=== PATIENT | female | born 1950 | race Two or more races ===

== ENCOUNTER 2024-08-08 13:49 | Outpatient (RCR) | payer OTHER, SELFPAY | END 2024-08-22 23:59 | disposition home or self-care (01) | LOC: SCTC 13:49 | PROVIDERS: PCP Family Medicine; Referring Provider Family Medicine; Visit Provider Nurse Practitioner Family | DX: C50.211 Malignant neoplasm of upper-inner quadrant of right female breast (principal); Z17.0 Estrogen receptor positive status [ER+]; Z17.21 Progesterone receptor positive status; Z17.32 Human epidermal growth factor receptor 2 negative status; Z90.11 Acquired absence of right breast and nipple; M85.89 Other specified disorders of bone density and structure, multiple sites; Z79.810 Long term (current) use of selective estrogen receptor modulators (SERMs); I10 Essential (primary) hypertension | CPT/HCPCS: 99212; G0463 ==

== ENCOUNTER → 2024-08-08 | Outpatient (CLI) | payer OTHER, SELFPAY ==
[2024-08-08 09:14] LABS: Basophils # (Auto) 0.1 Thou/mm3 (0.0-0.2); Basophils % (Auto) 1 % (0-2.5); Eosinophils # (Auto) 0.2 Thou/mm3 (0.0-0.5); Eosinophils % (Auto) 3 % (0-10); Hematocrit 36.9 % (36.0-46.0); Hemoglobin 12.8 g/dL (12.0-16.0); Immature Granulocytes % (Auto) 0 % (0-0); Immature Granulocytes Auto 0.02 Thou/mm3 (0.00-0.00); Lymphocytes # (Auto) 1.7 Thou/mm3 (1.0-4.8); Lymphocytes % (Auto) 28 % (10-50); Mean Corpuscular HGB Conc 34.7 g/dl (31.0-37.0); Mean Corpuscular Hemoglobin 33.5 pg (25.0-35.0); Mean Corpuscular Volume 97 fL (80-100); Monocytes # (Auto) 0.4 Thou/mm3 (0.0-0.8); Monocytes % (Auto) 6 % (0-12); Neutrophils # (Auto) 3.8 Thou/mm3 (1.8-7.7); Neutrophils % (Auto) 62 % (37-80); Nucleated Red Blood Cell % 0 /100 WBC (0); Platelet Count 292 Thou/mm3 (140-440); RDW Standard Deviation 45.4 fL (36.4-46.3); Red Blood Count 3.82 Miln/mm3 (4.00-5.20); White Blood Count 6.2 Thou/mm3 (3.6-11.0)
[2024-08-08 09:30] LABS: Alanine Aminotransferase 17 U/L (10-49); Albumin, Serum 4.3 gm/dL (3.4-4.8); Albumin/Globulin Ratio 1.8 (1.2-2.2); Alkaline Phosphatase 49 U/L (46-116); Anion Gap 7 (7-16); Aspartate Amino Transferase 16 U/L (0-34); BUN/Creatinine Ratio 18 Ratio (12-20); Bilirubin,Total 0.5 mg/dL (0.3-1.2); Blood Urea Nitrogen 11 mg/dL (9-23); Calcium 9.3 mg/dL (8.3-10.6); Calcium (Corrected) 9.3 mg/dL (8.5-10.1); Carbon Dioxide 28.1 mMol/L (20.0-31.0); Chloride 105 mMol/L (98-107); Creatinine (Component) 0.6 mg/dL (0.6-1.3); Globulin 2.4 gm/dL (2.3-3.5); Glucose 120 mg/dL (74-106); Osmolality,Calculated 279 (275-295); Potassium 4.7 mMol/L (3.4-5.1); Sodium 140 mMol/L (136-145); Total Protein 6.7 gm/dL (5.7-8.2); eGFR > 60 See Note
== END | disposition home or self-care (01) ==
PROVIDERS: PCP Family Medicine; Referring Provider Internal Medicine Hematology & Oncology; Visit Provider Internal Medicine Hematology & Oncology
DX: C50.411 Malignant neoplasm of upper-outer quadrant of right female breast (principal)
CPT/HCPCS: 36415; 80053; 85025

== ENCOUNTER 2024-09-11 08:55 | Day surgery (SDC) | payer OTHER, SELFPAY ==
[2024-09-08 15:25] VITALS: BMI 29.9
[2024-09-11] VITALS (10 sets, daily range): BP systolic 69–127; BP diastolic 42–83; PULSE 78–112; RESP 11–20; TEMP 36.2–36.7; O2SAT 96–99; BMI 28.8
[2024-09-11] MEDS: MIDAZOLAM INJ 1 MG/ML VIAL 2 ML (ASD USE ONLY) 2 MG IV (03:00)
[2024-09-11] MEDS: ONDANSETRON INJ 2 MG/ML INJ 2 ML 4 MG IV (11:18)
[2024-09-11] MEDS: DiphenhydrAMINE INJ 50 MG/ML VIAL 25 MG IV (11:18)
[2024-09-11] MEDS: SODIUM CHLORIDE 0.9% 500 ML 500 ML 20 ML IV (11:25)
--- NOTE | 2024-09-11 11:25 | SUR.OPER ---
1125 INFORMED OF LOW BLOOD PRESSURE. ORDER RECEIVED FOR A 500ML NS BOLUS.
[2024-09-11] MEDS: fentaNYL CIT INJ 50 mCg/ML AMP 2ML (ASD USE ONLY) IV (11:27)
[2024-09-11] MEDS: RINGERS LACTATED 1000 ML 1,000 ML 125 ML IV (11:52)
== END 2024-09-11 12:34 | disposition home or self-care (01) ==
PROVIDERS: PCP Family Medicine; Referring Provider Specialist; Visit Provider Specialist
PROC: 0DBE8ZX Excision of Large Intestine, Via Natural or Artificial Opening Endoscopic, Diagnostic (ICD-10-PCS; CPT 45380; principal; 2024-09-11 10:15)
DX: K52.9 Noninfective gastroenteritis and colitis, unspecified (principal); K63.89 Other specified diseases of intestine; K62.89 Other specified diseases of anus and rectum; K64.9 Unspecified hemorrhoids; K57.30 Diverticulosis of large intestine without perforation or abscess without bleeding; I10 Essential (primary) hypertension
CPT/HCPCS: 45380; A4649; J1200; J2250; J2405; J3010; J7040; J7120

== ENCOUNTER → 2024-10-10 | Outpatient (CLI) | payer OTHER, SELFPAY ==
[2024-10-10 10:51] LABS: Glucose Estimated Average 111 mg/dL (80-131); Hemoglobin A1C 5.5 % Hgb (4.8-6.0)
[2024-10-10 11:12] LABS: Alanine Aminotransferase 17 U/L (10-49); Albumin, Serum 4.2 gm/dL (3.4-4.8); Albumin/Globulin Ratio 1.7 (1.2-2.2); Alkaline Phosphatase 48 U/L (46-116); Anion Gap 11 (7-16); Aspartate Amino Transferase 22 U/L (0-34); BUN/Creatinine Ratio 20 Ratio (12-20); Bilirubin,Total 0.5 mg/dL (0.3-1.2); Blood Urea Nitrogen 12 mg/dL (9-23); Calcium 9.9 mg/dL (8.3-10.6); Calcium (Corrected) 9.9 mg/dL (8.5-10.1); Carbon Dioxide 27.4 mMol/L (20.0-31.0); Cardiac Risk Estimate 3.3 RATIO (3.7-5.6); Chloride 104 mMol/L (98-107); Cholesterol 188 mg/dL (132-200); Creatinine (Component) 0.6 mg/dL (0.6-1.3); Globulin 2.5 gm/dL (2.3-3.5); Glucose 117 mg/dL (74-106); HDL Cholesterol 57 mg/dL (40-60); LDL Cholesterol,Calculated 80 mg/dL (0-130); Osmolality,Calculated 283 (275-295); Potassium 5.1 mMol/L (3.4-5.1); Sodium 142 mMol/L (136-145); Thyroid Stimulating Hormone 3.75 uIU/mL (0.55-4.78); Total Protein 6.7 gm/dL (5.7-8.2); Triglycerides 253 mg/dL (30-150); eGFR > 60 See Note
[2024-10-10 11:34] LABS: Collection Type, Urine Clean Catch
[2024-10-10 12:08] LABS: Creatinine MALB Rnd Ur 83 mg/dL (30-125); Microalbumin Creat Ratio 11 mg/gCrea (<30); Microalbumin, Random Urine 9 mg/L (0-300)
[2024-10-10 12:11] LABS: Bilirubin,Urine Negative (Negative); Blood,Urine Negative (Negative); Clarity,Urine Turbid (Clear/Hazy); Color,Urine Yellow (Lt Yel-Yel); Glucose, Urine Negative (Negative); Ketones,Urine Negative (Negative); Leukocyte Esterase,Urine Negative (Negative); Nitrite,Urine Negative (Negative); Protein,Urine Negative (Neg - Trace); RBC,Urine 8 /hpf (0-3); Specific Gravity,Urine 1.019 (1.001-1.035); Squamous Epithelial Cell,Urine 11 /hpf (0-5); Urobilinogen,Urine Negative mg/dL (0.0-1.0); WBC,Urine 6 /hpf (0-5)
== END | disposition home or self-care (01) ==
PROVIDERS: PCP Family Medicine; Referring Provider Family Medicine; Visit Provider Family Medicine
DX: Z00.00 Encounter for general adult medical examination without abnormal findings (principal); E11.40 Type 2 diabetes mellitus with diabetic neuropathy, unspecified; E78.2 Mixed hyperlipidemia; I10 Essential (primary) hypertension
CPT/HCPCS: 36415; 80053; 80061; 81001; 82043; 82570; 83036; 84443

== ENCOUNTER → 2024-10-18 | Outpatient (CLI) | payer OTHER, SELFPAY ==
--- NOTE | 2024-10-18 11:45 | XR_ITS ---
Examination: Screening digital mammography, bilateral Computer aided detection 3-D breast Tomosynthesis, bilateral Date and time of exam: 10/18/2024, 11:42 AM Comparisons: June 11 2124 Indications: Screening Technique: Nonmagnified MLO, CC views of the breasts to been obtained, reconstructed from 3-D Tomosynthesis images. R2 computer aided detection program utilized for evaluation of suspicious masses and/or abnormal calcifications. 3-D Tomosynthesis images obtained. Technologist: Findings: There are scattered areas of fibroglandular density. Postoperative changes in the right breast. No evidence of residual or recurrent masses. Otherwise, no evidence of abnormal masses or suspicious calcifications. Impression: BI-RADS category 2: Benign findings Recommend 1 year follow-up mammogram
--- NOTE | 2024-10-18 12:00 | XR_ITS ---
Examination: Bone densitometry Date and time of exam:October 18, 2024 1240 hrs. Indications: Postmenopausal, right breast cancer diagnosis, personal history osteopenia Technique: Lumbar spine and hip total bone mineralization values of an calculated. Peak reference and age match control results have been displayed. Findings: Lumbar spine total bone mineralization is0.845 gm/cm2. This is 1.8 standard deviations below peak reference. This is 0.6 standard deviations above age-matched controls. Hip total bone mineralization is 0.885 gm/cm2 This is 0.6 standard deviations below peak reference. This is 1.3 standard deviations above age-matched controls Impression: There is osteopenia based on lumbar spine measurements. There is osteopenia based on hip measurements Lumbar mineralization is increase 0.4% compared with October 07, 2022 Hip mineralization is decreased 2.7% compared with October 07, 2022
== END | disposition home or self-care (01) ==
LOC: CDIM 11:30
PROVIDERS: Referring Provider Nurse Practitioner Family; Visit Provider Nurse Practitioner Family
DX: Z12.31 Encounter for screening mammogram for malignant neoplasm of breast (principal); R92.323 Mammographic fibroglandular density, bilateral breasts; M85.89 Other specified disorders of bone density and structure, multiple sites; C50.411 Malignant neoplasm of upper-outer quadrant of right female breast
CPT/HCPCS: 77063; 77067; 77080

== ENCOUNTER → 2024-10-20 | Outpatient (CLI) | payer OTHER, SELFPAY ==
[2024-10-20 10:10] LABS: Basophils % (Auto) 1 % (0-2.5); Eosinophils # (Auto) 0.1 Thou/mm3 (0.0-0.5); Eosinophils % (Auto) 2 % (0-10); Hematocrit 38.3 % (36.0-46.0); Immature Granulocytes % (Auto) 0 % (0-0); Immature Granulocytes Auto 0.02 Thou/mm3 (0.00-0.00); Lymphocytes # (Auto) 1.6 Thou/mm3 (1.0-4.8); Lymphocytes % (Auto) 22 % (10-50); Mean Corpuscular HGB Conc 33.9 g/dl (31.0-37.0); Mean Corpuscular Hemoglobin 32.7 pg (25.0-35.0); Mean Corpuscular Volume 96 fL (80-100); Monocytes # (Auto) 0.4 Thou/mm3 (0.0-0.8); Monocytes % (Auto) 6 % (0-12); Neutrophils # (Auto) 5.1 Thou/mm3 (1.8-7.7); Neutrophils % (Auto) 70 % (37-80); Nucleated Red Blood Cell % 0 /100 WBC (0); Platelet Count 317 Thou/mm3 (140-440); RDW Standard Deviation 43.8 fL (36.4-46.3); Red Blood Count 3.98 Miln/mm3 (4.00-5.20); White Blood Count 7.3 Thou/mm3 (3.6-11.0)
[2024-10-20 10:30] LABS: Alanine Aminotransferase 15 U/L (10-49); Albumin, Serum 4.2 gm/dL (3.4-4.8); Albumin/Globulin Ratio 1.7 (1.2-2.2); Alkaline Phosphatase 48 U/L (46-116); Anion Gap 8 (7-16); Aspartate Amino Transferase 19 U/L (0-34); BUN/Creatinine Ratio 20 Ratio (12-20); Bilirubin,Total 0.4 mg/dL (0.3-1.2); Blood Urea Nitrogen 10 mg/dL (9-23); Calcium 9.6 mg/dL (8.3-10.6); Calcium (Corrected) 9.6 mg/dL (8.5-10.1); Carbon Dioxide 27.8 mMol/L (20.0-31.0); Chloride 106 mMol/L (98-107); Creatinine (Component) 0.5 mg/dL (0.6-1.3); Globulin 2.5 gm/dL (2.3-3.5); Glucose 113 mg/dL (74-106); Osmolality,Calculated 283 (275-295); Potassium 5.2 mMol/L (3.4-5.1); Sodium 142 mMol/L (136-145); Total Protein 6.7 gm/dL (5.7-8.2); eGFR > 60 See Note
== END | disposition home or self-care (01) ==
LOC: SCTO 09:33
PROVIDERS: PCP Family Medicine; Referring Provider Internal Medicine Hematology & Oncology; Visit Provider Internal Medicine Hematology & Oncology
DX: C50.411 Malignant neoplasm of upper-outer quadrant of right female breast (principal)
CPT/HCPCS: 36415; 80053; 85025

== ENCOUNTER → 2024-11-09 | Outpatient (CLI) | payer OTHER, SELFPAY ==
--- NOTE | 2024-11-09 10:10 | XR_ITS ---
EXAMINATION: Ankle, left 3 views . Technique: Ankle AP, oblique, lateral 3 views Date and time of exam: November 09, 2024 10:19 AM INDICATIONS: Left ankle swelling beginning 3 months ago. FINDINGS: Bimalleolar soft tissue swelling Severe osteopenia No fracture IMPRESSION: No fracture
--- NOTE | 2024-11-09 10:12 | XR_ITS ---
Examination: Duplex scan of the lower extremity, unilateral left Date and time of exam: November 09, 2024 1051 hours INDICATIONS: Left lower leg swelling 3 years, diagnosis breast cancer Technique: Duplex scan of the extremity veins using B-mode/grayscale imaging and Doppler spectral analysis and color flow Attention is directed to internal echogenicity, compression and augmentation involving these veins, color flow assessment, spectral analysis Findings: Major deep venous structures in the extremity demonstrate normal course and caliber. There is no evidence of deep vein thrombosis. Normal color flow and spectral analysis Impression: Negative for DVT..
== END | disposition home or self-care (01) ==
PROVIDERS: PCP Family Medicine; Referring Provider Nurse Practitioner Family; Visit Provider Nurse Practitioner Family
DX: M25.472 Effusion, left ankle (principal); M79.89 Other specified soft tissue disorders; C50.411 Malignant neoplasm of upper-outer quadrant of right female breast
CPT/HCPCS: 73610; 93971

== ENCOUNTER 2024-11-14 09:28 | Outpatient (RCR) | payer OTHER, SELFPAY | END 2024-11-20 23:59 | disposition home or self-care (01) | LOC: SCTC 09:28 | PROVIDERS: PCP Family Medicine; Referring Provider Family Medicine; Visit Provider Nurse Practitioner Family | DX: C50.211 Malignant neoplasm of upper-inner quadrant of right female breast (principal); Z17.0 Estrogen receptor positive status [ER+]; Z17.21 Progesterone receptor positive status; Z17.32 Human epidermal growth factor receptor 2 negative status; Z90.11 Acquired absence of right breast and nipple; M85.89 Other specified disorders of bone density and structure, multiple sites; I10 Essential (primary) hypertension; M25.572 Pain in left ankle and joints of left foot; R60.0 Localized edema; Z79.810 Long term (current) use of selective estrogen receptor modulators (SERMs) | CPT/HCPCS: 99212; G0463 ==

== ENCOUNTER → 2024-11-28 | Outpatient (CLI) | payer OTHER, SELFPAY ==
[2024-11-28 12:32] LABS: Alanine Aminotransferase 16 U/L (10-49); Albumin, Serum 4.1 gm/dL (3.4-4.8); Albumin/Globulin Ratio 1.4 (1.2-2.2); Alkaline Phosphatase 53 U/L (46-116); Anion Gap 8 (7-16); Aspartate Amino Transferase 21 U/L (0-34); BUN/Creatinine Ratio 20 Ratio (12-20); Bilirubin,Total 0.5 mg/dL (0.3-1.2); Blood Urea Nitrogen 10 mg/dL (9-23); Calcium 9.7 mg/dL (8.3-10.6); Calcium (Corrected) 9.7 mg/dL (8.5-10.1); Carbon Dioxide 27.3 mMol/L (20.0-31.0); Chloride 103 mMol/L (98-107); Creatinine (Component) 0.5 mg/dL (0.6-1.3); Glucose 101 mg/dL (74-106); Osmolality,Calculated 274 (275-295); Potassium 4.6 mMol/L (3.4-5.1); Sodium 138 mMol/L (136-145); Total Protein 7.1 gm/dL (5.7-8.2); eGFR > 60 See Note
== END | disposition home or self-care (01) ==
LOC: COPL 11:41
PROVIDERS: PCP Family Medicine; Referring Provider Family Medicine; Visit Provider Family Medicine
DX: L03.90 Cellulitis, unspecified (principal)
CPT/HCPCS: 36415; 80053

== ENCOUNTER 2024-12-07 21:25 | Emergency (ER) | payer OTHER, SELFPAY ==
[2024-12-07 21:27] VITALS: BMI 29.9
--- NOTE | 2024-12-07 21:47 | EKG_ITS ---
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
[2024-12-07 21:52] VITALS: BP 182/97; PULSE 87; RESP 16; TEMP 36.6; O2SAT 98
--- NOTE | 2024-12-07 22:26 | PD.EDDIZZY ---
ED Dizzyness RME/HPI General Chief Complaint: Dizziness Stated Complaint: DIZZINESS SINCE WEDNESDAY NIGHT, HIGH BP Time Seen by Provider: 12/07/24 22:10 Arrival date/time: 12/07/24 21:25 RME / HPI RME / HPI Narrative: This section includes all my notes and documentations, including HPI, PE, and ED course. Peter Beaver MD HPI: 74yo female with a history of HTN presents to the ED for a chief complaint of dizziness. Patient states she woke up feeling dizzy this morning, describing it as spinning in nature with vomiting. Worse with moving. She reports associated chest pressure. Patient denies any cough, fever, chills, ear pain or any other associated symptoms. Patient is compliant with her medication regimen, including benazepril every morning. No other complaints reported. ROS: All negative except as documented in HPI. Physical Exam: General:? Alert and oriented.? Appearance of malaise noted. High BP noted. Eyes:? Conjunctivae and lids clear.? EOMI.? PERRL. ENT:? No nasal congestion.? Pharynx normal.? Tympanic membrane normal bilaterally.??? Neck:? Supple.? No carotid bruit.? No JVD.?? Heart:? RRR.? Lungs:? No respiratory distress.? Good air movement.? No rhonchi, wheezing, rales.?? Abdomen:? Soft and nontender.? Normal bowel sounds.? No distension.? No rebound or guarding.?? Back:? No CVA tenderness.?? Legs:? No clubbing, cyanosis, edema.? Skin:? Warm and dry.?? Neuro:? Alert and oriented X 3.? Cranial Nerves II-XII grossly intact.? No peripheral motor deficits. I reviewed all diagnostic test results. My interpretation of the EKG is sinus rhythm with no acute ST?T changes. My interpretation of the chest x-ray is possible RAMÓN mass. My review of the head CT head report is NAD. Blood tests and urine tests unremarkable. At this point, diagnoses include Vertigo and Hypertension. Treatment here included Clonidine, Meclizine, Zofran, and Scopolamine. Significant improvement noted. Recommended conservative management and more outpatient workup, including for possible RAMÓN lung mass. Based on my best medical judgment, made decision no further evaluation or treatment indicated at this time. Patient understands and agrees to the discharge instructions customized and printed, see below. Discharge instructions from Dr. Beaver: ? After extensive evaluation, there is no life-threatening condition.? Such as stroke or brain tumor or heart attack. -- Your severe symptoms are due to vertigo.? This is an inner ear problem that makes you feel like you are drunk or seasick.? See attached handout. -- Use scopolamine patch and/or meclizine for your severe symptoms. -- And Zofran for nausea/vomiting.? And increase oral fluid to prevent dehydration.? Maintain clear urine.? If dark or yellow, increase oral fluid. -- And do everything very slowly.? Including moving your head.? And when you sit up or stand up, wait a minute before you progress.? -- To help lower your BP, take clonidine 0.1 mg every night. -- See your private doctor on 12/11/2024 for recheck and further care. Ask to review all test results and official radiology reports, to make sure you receive all necessary follow-ups and monitoring. If needed, ask to help you get more care not available here in the ER.? Such as MRI imaging of your brain, physical therapy, table tilt test, and referrals to see specialists (such as neurologist and ENT specialist). To make sure there is no serious underlying heart condition, ask to help you get more tests for your heart that cannot be done here in the ER. Such as Holter Monitor (cardiac monitoring at home from a day to even a month), heart stress test (on treadmill or with medication), echocardiogram (imaging of your heart structures), heart catherization (checking for blockages in your heart arteries), and a referral to see a Pediatric Licensed Practical Nurse. Ask for help with chest CT scan to follow-up your chest x-ray report. -- Seek immediate medical care with worsening or with any concerns. Peter Beaver MD Related Data Home Medications ?Medication ?Instructions ?Recorded ?Confirmed benazepril 40 mg tablet (Lotensin) 40 mg PO QDAY #0 tabs 06/11/14 09/11/24 atorvastatin 10 mg tablet 10 mg PO QPM 03/02/24 09/11/24 latanoprost (PF) 0.005 % eye drops 1 drp ophthalmic (eye) QDAY 03/02/24 09/11/24 in a dropperette timolol maleate 0.5 % once daily 1 drp ophthalmic (eye) QDAY 03/02/24 09/11/24 eye drops tamoxifen 20 mg tablet 20 mg PO QDAY 09/11/24 09/11/24 Previous Rx's ?Medication ?Instructions ?Recorded clonidine HCl 0.1 mg tablet 0.1 mg PO DAILY #30 tabs 12/08/24 meclizine 25 mg tablet 25 mg PO BID PRN dizziness #20 tabs 12/08/24 ondansetron 4 mg disintegrating 4 mg PO TID PRN nausea and 12/08/24 tablet vomiting 30 days #10 tabs scopolamine base 1 mg over 3 days 1 mg topical .q72 hours PRN 12/08/24 transdermal patch (Transderm-Scop) dizziness or vertigo #4 ea Allergies Allergy/AdvReac Type Severity Reaction Status Date / Time codeine Allergy Unknown Dizziness Verified 12/07/24 21:26 Review of Systems Review of Systems Systems Reviewed: All systems reviewed, normal except as documented ED Exam Narrative Physical exam: As noted in HPI. Course Course Course Narrative: CXR is ordered for determining the etiology of chest pain. Quality Measures none Orders Category Date Time Status EKG (ED ONLY) *Do not use* NOW Care 12/07/24 21:[address] head/brain wo con Stat Exams 12/07/24 22:28 Taken EKG (ED Only) Stat Exams 12/07/24 21:47 Draft XR chest 1V portable Stat Exams 12/07/24 22:28 Completed CBC Stat Lab 12/07/24 22:34 Completed CMP [Comprehensive Metabolic Panel] Stat Lab 12/07/24 22:34 Completed Free T4 (Free Thyroxine) Stat Lab 12/07/24 22:34 Completed Magnesium Stat Lab 12/07/24 22:34 Completed TSH [Thyroid Stimulating Hormone] Stat Lab 12/07/24 22:34 Completed Troponin I Stat Lab 12/07/24 22:34 Completed UA, C/S IF [Urinalysis, C/S if Indicated] Stat Lab 12/07/24 22:55 Completed Meclizine HCl [Antivert] Med 12/07/24 22:27 Discontinued 25 mg PO X1 ONE Ondansetron Odt [Zofran Odt] Med 12/07/24 22:27 Discontinued 4 mg PO X1 ONE Scopolamine [Transderm-Scop Patch] Med 12/07/24 22:27 Discontinued 1 mg TOP X1 ONE cloNIDine HCL [Catapres] Med 12/07/24 22:27 Discontinued 0.2 mg PO X1 ONE Vital Signs Vital signs: Vital Signs Temperature 97.9 F 12/07/24 21:52 Pulse Rate 87 12/07/24 21:52 Respiratory Rate 16 12/07/24 21:52 Blood Pressure 182/97 H 12/07/24 21:52 Pulse Oximetry (%) 98 12/07/24 21:52 Oxygen Delivery Method Room Air 12/07/24 21:52 Dizziness MDM Narrative MDM Narrative:: Scribe Attestation: 12/07/24 - Maricarmen Rivers am scribing for and in the presence of Dr. Beaver. Patient data External records reviewed:: [facility] previous records (Per chart review, patient has no relevant previous ED visits or admissions to this facility.) Clinical information provided by:: patient Social determinants that could affect healthcare access:: none Patient has the following chronic illnesses:: HTN How is presenting disease/condition affected by chronic disease/condition?: exacerbated by Evaluation data The following diagnostics were reviewed and interpreted by me:: lab results, radiology exam(s) and EKG tracing(s) (My interpretation of the EKG is: Sinus rhythm (80 bpm) with nonspecific ST-T changes. Peter Beaver MD) Lab and/or radiology exams considered but not ordered:: none Interpretation Summary: Vertigo, Hypertension Medications / Prescriptions Medications or Prescriptions considered but not ordered:: none Medication administrations:: Medication Administration History Discontinued Medications Clonidine (Clonidine Hcl 0.1 Mg Tablet) 0.2 mg PO X1 ONE Stop: 12/07/24 22:28 Last Admin: 12/07/24 22:43 Dose: 0.2 mg Documented By: NATALIE Meclizine HCl (Meclizine Hcl 25 Mg Tablet) 25 mg PO X1 ONE Stop: 12/07/24 22:28 Last Admin: 12/07/24 22:42 Dose: 25 mg Documented By: NATALIE Ondansetron HCl (Ondansetron Odt 4 Mg Tabrap) 4 mg PO X1 ONE; Protocol Stop: 12/07/24 22:28 Last Admin: 12/07/24 22:42 Dose: 4 mg Documented By: NATALIE Scopolamine (Scopolamine 1 Mg Tdsy) 1 mg TOP X1 ONE Stop: 12/07/24 22:28 Last Admin: 12/07/24 22:43 Dose: 1 mg Documented By: NATALIE Clonidine, Meclizine, Zofran, Scopolamine Consultations Consultation(s) initiated? (list below): No Diagnosis Dizziness Differential Diagnosis: adverse reaction to drug, benign paroxysmal positional vertigo, orthostatic hypotension, vertebral basilar insufficiency, cerebrovascular accident, acute vestibular neuronitis and transient cerebral ischemia Most likely diagnosis given after review of the tests above:: Vertigo, Hypertension Admission Indicated Admission indicated?: not indicated Explain why admission is indicated or not indicated:: With significant improvement, there was no indication for admission. Admission Request Was there a request for admission?: No Disposition Plan Disposition Plan: Discharge Discharge Attestation Discharge Attestation: The patient and all family members were given an opportunity to ask questions and understood the discharge instructions. Discharge instructions specifically effects, indications for sooner follow up or return to the emergency department, and the expected course of current diagnosis. Patient condition: Stable Discharge Plan Plan Patient Disposition: HOME (Self Care) Prescriptions/Referrals Prescriptions/Med Rec: New clonidine HCl 0.1 mg tablet 0.1 mg PO DAILY Qty: 30 0RF meclizine 25 mg tablet 25 mg PO BID PRN (Reason: dizziness) Qty: 20 0RF scopolamine base [Transderm-Scop] 1 mg over 3 days patch 3 day 1 mg topical .q72 hours PRN (Reason: dizziness or vertigo) Qty: 4 0RF ondansetron 4 mg tablet,disintegrating 4 mg PO TID PRN (Reason: nausea and vomiting) 30 Days Qty: 10 0RF No Action benazepril [Lotensin] 40 MG tablet 40 mg PO QDAY Qty: 0 atorvastatin 10 mg Tablet 10 mg PO QPM timolol maleate 0.5 % Drops, Once Daily 1 drp OPHTHALMIC (EYE) QDAY latanoprost (PF) 0.005 % Dropperette 1 drp OPHTHALMIC (EYE) QDAY tamoxifen 20 mg tablet 20 mg PO QDAY Referrals: Ilia Mccloud MD [Primary Care Provider] - In 1 week Problem List Clinical Impression: Vertigo, Hypertension Patient/Caregiver Discharge Instructions Discharge Activity: activity as tolerated Education Materials: ED Hypertension, Established, ED Vertigo, Unspecified Additional Instructions: Discharge instructions from Dr. Beaver: ? After extensive evaluation, there is no life-threatening condition.? Such as stroke or brain tumor or heart attack. -- Your severe symptoms are due to vertigo.? This is an inner ear problem that makes you feel like you are drunk or seasick.? See attached handout. -- Use scopolamine patch and/or meclizine for your severe symptoms. -- And Zofran for nausea/vomiting.? And increase oral fluid to prevent dehydration.? Maintain clear urine.? If dark or yellow, increase oral fluid. -- And do everything very slowly.? Including moving your head.? And when you sit up or stand up, wait a minute before you progress.? -- To help lower your BP, take clonidine 0.1 mg every night. -- See your private doctor on 12/11/2024 for recheck and further care. Ask to review all test results and official radiology reports, to make sure you receive all necessary follow-ups and monitoring. If needed, ask to help you get more care not available here in the ER.? Such as MRI imaging of your brain, physical therapy, table tilt test, and referrals to see specialists (such as neurologist and ENT specialist). To make sure there is no serious underlying heart condition, ask to help you get more tests for your heart that cannot be done here in the ER. Such as Holter Monitor (cardiac monitoring at home from a day to even a month), heart stress test (on treadmill or with medication), echocardiogram (imaging of your heart structures), heart catherization (checking for blockages in your heart arteries), and a referral to see a Pediatric Licensed Practical Nurse. Ask for help with chest CT scan to follow-up your chest x-ray report. -- Seek immediate medical care with worsening or with any concerns. Instrucciones de rigoberto del Dr. Beaver: ? Tras jacob evaluaci?n exhaustiva, no se observa ninguna afecci?n potencialmente mortal, raina un derrame cerebral, un tumor cerebral o un infarto. -- Lorie s?ntomas graves se deben al v?rtigo. Se trata de un problema del o?do interno que le produce jacob sensaci?n de ebriedad o mareo. Consulte el folleto adjunto. -- Use un parche de escopolamina o meclizina para los s?ntomas graves. -- Y Zofran para las n?useas y los v?mitos. Aumente la ingesta de l?quidos para prevenir la deshidrataci?n. Mantenga la orina vandana. Si es oscura o amarilla, aumente la ingesta de l?quidos. -- Marisela todo muy lentamente, incluyendo lead cargo mover la abel. Al incorporarse o levantarse, espere un minuto antes de continuar. -- Para ayudar a bajar la presi?n arterial, tome 0,1 mg de clonidina todas las noches. -- Consulte a george m?dico el 11/12/2024 para jacob nueva revisi?n y recibir m?s atenci?n. Solicite revisar todos los resultados de las pruebas y los informes radiol?gicos oficiales para asegurarse de recibir todos los seguimientos y la monitorizaci?n necesarios. Si es necesario, solicite ayuda para obtener m?s atenci?n que no est? disponible en urgencias, raina resonancias magn?domenica cerebrales, fisioterapia, prueba de inclinaci?n de la nelson y derivaciones a especialistas (raina neur?logos y otorrinolaring?logos). Para asegurarse de que no haya jacob afecci?n card?elan subyacente grave, solicite ayuda para obtener m?s pruebas card?acas que no se pueden realizar en urgencias, raina un monitor Holter (monitorizaci?n card?elan en casa desde un d?a hasta un mes), jacob prueba de esfuerzo card?aco (en cinta caminadora o con medicaci?n), un ecocardiograma (im?genes de las estructuras card?acas), un cateterismo card?aco (para detectar obstrucciones en las arterias card?acas) y jacob derivaci?n a un cardi?logo. Solicite ayuda con jacob tomograf?a computarizada de t?rax para el seguimiento de george radiograf?a de t?rax. -- Busque atenci?n m?dica inmediata si presenta un empeoramiento o si tiene alguna inquietud. Print Language: Maldivian Stand Alone Forms: Fiona Award Info., Patient Portal Info Letter
--- NOTE | 2024-12-07 22:28 | XR_ITS ---
Examination: CT brain head without contrast. 2-D sagittal coronal reconstructions Date and time of exam:December 08, 2024 0033 hours INDICATIONS: Dizziness episodes today CTDI: vol (mGy):52.3 DLP: (mGycm):1016 Technique: Multiple CT axial sections of the brain have been obtained, 5 mm slice thickness. Contrast has not been administered. 2-D sagittal, coronal reconstructions have been obtained Low dose protocols were performed. One or more of the following dose reduction techniques were used; automated exposure control, adjustment of the mA and/or KV according to patient size, use of iterative reconstruction technique. Findings: No significant ventricular enlargement. Chronic subdural hygromas peripheral to the frontal hemispheres Intra-axial or extra-axial hemorrhage density is not seen. No mass effect or midline shift Basal cisterns are not remarkable. Fourth ventricle is midline. Cranial vault intact. Impression: Negative for acute hemorrhage, mass effect or midline shift
--- NOTE | 2024-12-07 22:28 | XR_ITS ---
Examination: PA chest single view Technique: Upright PA chest single view Exam date and time: December 07, 2024 1102 hrs. Indications: Shortness of breath with hypertension today. Findings: No dislocation versus poorly defined 4 cm pulmonary mass in the left upper lobe Normal heart size Right lung clear Moderate osteopenia Impression: Recommend CT chest without contrast follow-up to exclude pulmonary mass left upper lobe
[2024-12-07 22:41] LABS: Basophils % (Auto) 1 % (0-2.5); Eosinophils # (Auto) 0.3 Thou/mm3 (0.0-0.5); Eosinophils % (Auto) 4 % (0-10); Hematocrit 36.6 % (36.0-46.0); Hemoglobin 12.9 g/dL (12.0-16.0); Immature Granulocytes % (Auto) 0 % (0-0); Immature Granulocytes Auto 0.01 Thou/mm3 (0.00-0.00); Lymphocytes # (Auto) 1.9 Thou/mm3 (1.0-4.8); Lymphocytes % (Auto) 27 % (10-50); Mean Corpuscular HGB Conc 35.2 g/dl (31.0-37.0); Mean Corpuscular Hemoglobin 33.7 pg (25.0-35.0); Mean Corpuscular Volume 96 fL (80-100); Monocytes # (Auto) 0.4 Thou/mm3 (0.0-0.8); Monocytes % (Auto) 6 % (0-12); Neutrophils # (Auto) 4.3 Thou/mm3 (1.8-7.7); Neutrophils % (Auto) 63 % (37-80); Nucleated Red Blood Cell % 0 /100 WBC (0); Platelet Count 304 Thou/mm3 (140-440); RDW Standard Deviation 43.8 fL (36.4-46.3); Red Blood Count 3.83 Miln/mm3 (4.00-5.20); White Blood Count 6.9 Thou/mm3 (3.6-11.0)
[2024-12-07] MEDS: ONDANSETRON ODT 4 MG TABRAP PO (22:42)
[2024-12-07] MEDS: MECLIZINE HCL 25 MG TABLET PO (22:42)
[2024-12-07 22:43] VITALS: BP 182/97; PULSE 87
[2024-12-07] MEDS: SCOPOLAMINE 1 MG TDSY TOP (22:43)
[2024-12-07] MEDS: cloNIDine HCL 0.1 MG TABLET 0.2 MG PO (22:43)
[2024-12-07 23:01] LABS: Anion Gap 7 (7-16); Blood Urea Nitrogen 12 mg/dL (9-23); Carbon Dioxide 27.6 mMol/L (20.0-31.0); Chloride 107 mMol/L (98-107); Creatinine (Component) 0.5 mg/dL (0.6-1.3); Potassium 4.4 mMol/L (3.4-5.1); Sodium 142 mMol/L (136-145)
[2024-12-07 23:02] LABS: Alanine Aminotransferase 13 U/L (10-49); Albumin, Serum 4.1 gm/dL (3.4-4.8); Albumin/Globulin Ratio 1.5 (1.2-2.2); Alkaline Phosphatase 48 U/L (46-116); Aspartate Amino Transferase 20 U/L (0-34); BUN/Creatinine Ratio 24 Ratio (12-20); Bilirubin,Total 0.4 mg/dL (0.3-1.2); Calcium 9.1 mg/dL (8.3-10.6); Calcium (Corrected) 9.1 mg/dL (8.5-10.1); Estimated Creatinine Clearance 79.7 mL/min (>60); Free T4 (Free Thyroxine) 1.02 ng/dL (0.89-1.76); Globulin 2.7 gm/dL (2.3-3.5); Glucose 120 mg/dL (74-106); Osmolality,Calculated 283 (275-295); Thyroid Stimulating Hormone 5.39 uIU/mL (0.55-4.78); Total Protein 6.8 gm/dL (5.7-8.2); Troponin I < 0.020 ng/mL (0.0-0.045); eGFR > 60 See Note
[2024-12-07 23:29] LABS: Collection Type, Urine Clean Catch
[2024-12-07 23:36] LABS: Bilirubin,Urine Negative (Negative); Blood,Urine Trace (Negative); Clarity,Urine Clear (Clear/Hazy); Color,Urine Colorless (Lt Yel-Yel); Culture Indicated,Urine Not Indicated; Glucose, Urine Negative (Negative); Ketones,Urine Negative (Negative); Leukocyte Esterase,Urine Negative (Negative); Nitrite,Urine Negative (Negative); Protein,Urine Negative (Neg - Trace); RBC,Urine 2 /hpf (0-3); Specific Gravity,Urine 1.004 (1.001-1.035); Squamous Epithelial Cell,Urine 1 /hpf (0-5); Urobilinogen,Urine Negative mg/dL (0.0-1.0); WBC,Urine 1 /hpf (0-5)
--- NOTE | 2024-12-08 01:45 | PRELIM_ITS ---
CT scan of the head without intravenous contrast (axial sections with sagittal and coronal reformats) December 08, 2024 0033 hours Clinical history: Dizziness. No prior study is available for comparison. Findings: There is no evidence of intracranial hemorrhage, mass effect or midline shift. There are chronic subdural hygromas along bilateral frontal convexities, measuring 11 mm and 8 mm in thickness on the right and left respectively. There are mild periventricular white matter hypodensities, likely representing chronic small vessel ischemia. There is moderate volume loss. The calvarium is unremarkable. The mastoid air cells and the visualized paranasal sinuses are clear. 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 No midline shift. No evidence of intracranial hemorrhage, mass effect or midline shift. Periventricular chronic small vessel ischemia and volume loss. Report Electronically Signed By: Dallin Mendieta 12/08/2024 1:45:00 AM [EST]
[2024-12-08 01:50] VITALS: BP 101/65; PULSE 73; RESP 18; TEMP 36.7; O2SAT 95
== END 2024-12-08 02:18 | disposition home or self-care (01) ==
PROVIDERS: Emergency Provider Emergency Medicine; PCP Family Medicine
DX: I10 Essential (primary) hypertension (principal); R42 Dizziness and giddiness; R06.02 Shortness of breath; I45.10 Unspecified right bundle-branch block
CPT/HCPCS: 36415; 70450; 71045; 80053; 81001; 83735; 84439; 84443; 84484; 85025; 93005; 99284; Q0162; A9270

== ENCOUNTER → 2025-02-01 | Outpatient (CLI) | payer OTHER, SELFPAY ==
[2025-02-01 09:53] LABS: Basophils % (Auto) 0 % (0-2.5); Eosinophils # (Auto) 0.1 Thou/mm3 (0.0-0.5); Eosinophils % (Auto) 2 % (0-10); Hematocrit 33.4 % (36.0-46.0); Hemoglobin 12.1 g/dL (12.0-16.0); Immature Granulocytes % (Auto) 0 % (0-0); Immature Granulocytes Auto 0.01 Thou/mm3 (0.00-0.00); Lymphocytes # (Auto) 0.8 Thou/mm3 (1.0-4.8); Lymphocytes % (Auto) 16 % (10-50); Mean Corpuscular HGB Conc 36.2 g/dl (31.0-37.0); Mean Corpuscular Hemoglobin 33.6 pg (25.0-35.0); Mean Corpuscular Volume 93 fL (80-100); Monocytes # (Auto) 0.5 Thou/mm3 (0.0-0.8); Monocytes % (Auto) 10 % (0-12); Neutrophils # (Auto) 3.6 Thou/mm3 (1.8-7.7); Neutrophils % (Auto) 72 % (37-80); Nucleated Red Blood Cell % 0 /100 WBC (0); Platelet Count 268 Thou/mm3 (140-440); RDW Standard Deviation 43.2 fL (36.4-46.3)
[2025-02-01 10:17] LABS: Alanine Aminotransferase 32 U/L (10-49); Anion Gap 7 (7-16); BUN/Creatinine Ratio 20 Ratio (12-20); Bilirubin,Total 0.4 mg/dL (0.3-1.2); Blood Urea Nitrogen 10 mg/dL (9-23); Calcium 8.6 mg/dL (8.3-10.6); Calcium (Corrected) 8.6 mg/dL (8.5-10.1); Carbon Dioxide 27.8 mMol/L (20.0-31.0); Chloride 103 mMol/L (98-107); Creatinine (Component) 0.5 mg/dL (0.6-1.3); Globulin 2.4 gm/dL (2.3-3.5); Glucose 132 mg/dL (74-106); Osmolality,Calculated 276 (275-295); Potassium 4.2 mMol/L (3.4-5.1); Sodium 138 mMol/L (136-145); Total Protein 6.4 gm/dL (5.7-8.2); eGFR > 60 See Note
[2025-02-01 10:18] LABS: Albumin/Globulin Ratio 1.7 (1.2-2.2); Alkaline Phosphatase 46 U/L (46-116)
[2025-02-01 10:27] LABS: Carcinoembryonic Antigen 2.4 ng/mL (0.0-5.0)
== END | disposition home or self-care (01) ==
LOC: SCTO 08:49
PROVIDERS: PCP Family Medicine; Referring Provider Nurse Practitioner Family; Visit Provider Nurse Practitioner Family
DX: C50.411 Malignant neoplasm of upper-outer quadrant of right female breast (principal)
CPT/HCPCS: 36415; 80053; 82378; 85025; 86300

== ENCOUNTER 2025-02-05 09:03 | Outpatient (RCR) | payer OTHER, SELFPAY | END 2025-02-19 23:59 | disposition home or self-care (01) | LOC: SCTC 09:03 | PROVIDERS: PCP Family Medicine; Referring Provider Family Medicine; Visit Provider Nurse Practitioner Family | DX: C50.211 Malignant neoplasm of upper-inner quadrant of right female breast (principal); Z90.11 Acquired absence of right breast and nipple; Z17.0 Estrogen receptor positive status [ER+]; Z17.21 Progesterone receptor positive status; Z17.32 Human epidermal growth factor receptor 2 negative status; Z79.810 Long term (current) use of selective estrogen receptor modulators (SERMs); M85.89 Other specified disorders of bone density and structure, multiple sites; I10 Essential (primary) hypertension; R91.8 Other nonspecific abnormal finding of lung field | CPT/HCPCS: 99212; G0463 ==

== ENCOUNTER → 2025-03-15 | Outpatient (CLI) | payer OTHER, SELFPAY ==
--- NOTE | 2025-03-15 10:00 | XR_ITS ---
Examination: CT chest with intravenous contrast CT chest without intravenous contrast 2-D reconstructions Date and time of exam:March 15, 2025 1138 hours INDICATIONS: Diagnosis malignant neoplasm upper outer quadrant right female breast, history lumpectomy, restaging CTDI:vol (mGy) 19.3 DLP: (mGycm) 681 Technique: Multiple axial sections of the thorax have been obtained. 3 mm slice thickness, from the hemidiaphragms to above the apices of the lungs. Mediastinal and lung density settings have been obtained. Intravenous contrast administered 60 cc Isovue-370. Noncontrast images have also been obtained. 2-D sagittal coronal images obtained. Low dose protocols were performed. One or more of the following dose reduction techniques were used; automated exposure control, adjustment of the mA and/or KV according to patient size, use of iterative reconstruction technique. Findings: No thoracic aortic aneurysm dilatation No pulmonary artery emboli on this non-CTA study No paratracheal tracheobronchial or bronchopulmonary adenopathy. No current breast or chest wall mass No pathologic axillary lymphadenopathy Fatty infiltration throughout the liver Absent gallbladder Spleen not enlarged Normal adrenal glands Kidneys partially visualized no hydronephrosis Moderate osteopenia IMPRESSION: No interval metastatic disease
[2025-03-15 11:19] LABS: Basophils # (Auto) 0.1 Thou/mm3 (0.0-0.2); Basophils % (Auto) 1 % (0-2.5); Eosinophils # (Auto) 0.2 Thou/mm3 (0.0-0.5); Eosinophils % (Auto) 3 % (0-10); Hematocrit 34.8 % (36.0-46.0); Hemoglobin 11.8 g/dL (12.0-16.0); Immature Granulocytes Auto 0.02 Thou/mm3 (0.00-0.00); Lymphocytes # (Auto) 1.7 Thou/mm3 (1.0-4.8); Lymphocytes % (Auto) 23 % (10-50); Mean Corpuscular HGB Conc 33.9 g/dl (31.0-37.0); Mean Corpuscular Hemoglobin 33.3 pg (25.0-35.0); Mean Corpuscular Volume 98 fL (80-100); Monocytes # (Auto) 0.4 Thou/mm3 (0.0-0.8); Monocytes % (Auto) 5 % (0-12); Neutrophils # (Auto) 5.2 Thou/mm3 (1.8-7.7); Neutrophils % (Auto) 68 % (37-80); Nucleated Red Blood Cell # 0.00 Thou/mm3 (0.00-0.00); Nucleated Red Blood Cell % 0 /100 WBC (0); Platelet Count 333 Thou/mm3 (140-440); RDW Standard Deviation 46.0 fL (36.4-46.3); Red Blood Count 3.54 Miln/mm3 (4.00-5.20); White Blood Count 7.6 Thou/mm3 (3.6-11.0)
[2025-03-15 11:29] LABS: Alanine Aminotransferase 17 U/L (10-49); Albumin, Serum 4.1 gm/dL (3.4-4.8); Albumin/Globulin Ratio 1.5 (1.2-2.2); Alkaline Phosphatase 41 U/L (46-116); Anion Gap 10 (7-16); Aspartate Amino Transferase 25 U/L (0-34); BUN/Creatinine Ratio 20 Ratio (12-20); Bilirubin,Total 0.5 mg/dL (0.3-1.2); Blood Urea Nitrogen 12 mg/dL (9-23); Calcium 9.6 mg/dL (8.3-10.6); Calcium (Corrected) 9.6 mg/dL (8.5-10.1); Carbon Dioxide 28.7 mMol/L (20.0-31.0); Chloride 103 mMol/L (98-107); Creatinine (Component) 0.6 mg/dL (0.6-1.3); Globulin 2.8 gm/dL (2.3-3.5); Glucose 108 mg/dL (74-106); Osmolality,Calculated 283 (275-295); Potassium 4.3 mMol/L (3.4-5.1); Sodium 142 mMol/L (136-145); Total Protein 6.9 gm/dL (5.7-8.2); eGFR > 60 See Note
== END | disposition home or self-care (01) ==
LOC: CCTX 10:01
PROVIDERS: PCP Family Medicine; Referring Provider Nurse Practitioner Family; Visit Provider Nurse Practitioner Family
DX: C50.411 Malignant neoplasm of upper-outer quadrant of right female breast (principal)
CPT/HCPCS: 36415; 71270; 80053; 85025; A4649; Q9967

== ENCOUNTER 2025-04-11 11:14 | Outpatient (RCR) | payer OTHER, SELFPAY | END 2025-04-22 23:59 | disposition home or self-care (01) | LOC: SCTC 11:14 | PROVIDERS: PCP Family Medicine; Referring Provider Family Medicine; Visit Provider Nurse Practitioner Family | DX: C50.211 Malignant neoplasm of upper-inner quadrant of right female breast (principal); Z17.0 Estrogen receptor positive status [ER+]; Z17.21 Progesterone receptor positive status; Z17.32 Human epidermal growth factor receptor 2 negative status; Z90.11 Acquired absence of right breast and nipple; Z79.811 Long term (current) use of aromatase inhibitors; M85.89 Other specified disorders of bone density and structure, multiple sites; K76.0 Fatty (change of) liver, not elsewhere classified; R94.6 Abnormal results of thyroid function studies | CPT/HCPCS: 99212; G0463 ==

== ENCOUNTER → 2025-04-18 | Outpatient (CLI) | payer OTHER, SELFPAY ==
[2025-04-18 08:11] LABS: Quantiferon-TB* See Sep Rpt
[2025-04-18 08:57] LABS: Anion Gap 9 (7-16); BUN/Creatinine Ratio 33 Ratio (12-20); Blood Urea Nitrogen 20 mg/dL (9-23); Calcium 10.0 mg/dL (8.3-10.6); Carbon Dioxide 28.6 mMol/L (20.0-31.0); Chloride 104 mMol/L (98-107); Creatinine (Component) 0.6 mg/dL (0.6-1.3); Glucose 117 mg/dL (74-106); Magnesium 1.7 mg/dL (1.6-2.6); Osmolality,Calculated 286 (275-295); Potassium 4.4 mMol/L (3.4-5.1); Sodium 142 mMol/L (136-145); eGFR > 60 See Note
[2025-04-18 11:52] LABS: Cocci Serology, IgM Negative (Negative)
[2025-04-20 11:05] LABS: Cocci Serology, IgG Negative (Negative)
== END | disposition home or self-care (01) ==
LOC: COPL 07:51
PROVIDERS: PCP Internal Medicine Cardiovascular Disease; Referring Provider Nurse Practitioner Family; Visit Provider Nurse Practitioner Family
DX: C50.411 Malignant neoplasm of upper-outer quadrant of right female breast (principal); E78.2 Mixed hyperlipidemia; R00.2 Palpitations
CPT/HCPCS: 36415; 80048; 83735; 86331; 86480; 86635

== ENCOUNTER → 2025-05-07 | Outpatient (CLI) | payer OTHER, SELFPAY ==
[2025-05-07 13:29] LABS: Free T4 (Free Thyroxine) 0.99 ng/dL (0.89-1.76); Thyroid Stimulating Hormone 5.28 uIU/mL (0.55-4.78)
[2025-05-07 14:27] LABS: Cocci Serology, IgM Negative (Negative)
[2025-05-08 10:50] LABS: Cocci Serology, IgG Negative (Negative)
== END | disposition home or self-care (01) ==
LOC: SCTO 12:28
PROVIDERS: PCP Family Medicine; Referring Provider Nurse Practitioner Family; Visit Provider Nurse Practitioner Family
DX: C50.411 Malignant neoplasm of upper-outer quadrant of right female breast (principal)
CPT/HCPCS: 36415; 84439; 84443; 86331; 86635

== ENCOUNTER 2025-05-14 15:09 | Outpatient (RCR) | payer OTHER, SELFPAY | END 2025-05-22 23:59 | disposition home or self-care (01) | LOC: SCTC 15:09 | PROVIDERS: PCP Family Medicine; Referring Provider Family Medicine; Visit Provider Nurse Practitioner Family | DX: C50.211 Malignant neoplasm of upper-inner quadrant of right female breast (principal); Z17.0 Estrogen receptor positive status [ER+]; Z17.21 Progesterone receptor positive status; Z17.32 Human epidermal growth factor receptor 2 negative status; Z79.810 Long term (current) use of selective estrogen receptor modulators (SERMs); M85.89 Other specified disorders of bone density and structure, multiple sites; K76.0 Fatty (change of) liver, not elsewhere classified; R94.6 Abnormal results of thyroid function studies | CPT/HCPCS: 99212; G0463 ==